=== PATIENT | male | born 1995 | race Caucasian/White ===

== ENCOUNTER 2021-07-23 10:03 | Outpatient (CLI) | payer OTHER ==
[2021-07-23 11:12] VITALS: BP 139/89
--- NOTE | 2021-07-23 11:12 | SLEEP CARE CONSULTATION ---
Information from patient questionnaire entered by Edu Mijares MA. I have reviewed and concur with the information entered by Edu Mijares MA. This document represents the service I personally performed and the decisions made by , Eugenia Maza ARNP. History of Present Illness Service Date and Time: 07/23/2021 1003 Reason for Visit: New patient (ONSET 06/01/2020, NO PRIORS, ) Chief Complaint: reports: Unrefreshed sleep, Snoring, Fatigue, Frequent awak enings at night Date of Onset: 2019 TO CURRENT Usual bedtime: 930-1000 PM Time it takes to fall asleep: 30 - 1 HOUR Snores at night: Yes Observed to quit breathing while asleep: No (sleeps alone) Number of times waking at night: 3-5 Reasons for waking at night: reports: Snoring, Other (DRY SORE THROAT; restlessness) Toss, Turn, or Twitch while sleeping: Yes Recalls having dreams: No Usually gets out of bed at: 0530; weekends wakes up at 0530 but goes back to sleep til 0700 Feels refreshed in the morning: No Morning headache: No Sleepy or fatigued during the day: Yes Ever fallen asleep while driving: No Takes day naps: Yes (1-2 times a month for 30 mins to 1 hour) Dreams during day naps: No Prior sleep studies: No Additional HPI information: I had the pleasure of seeing SUE BARRAGAN today regarding the possibility of him having a sleep disorder. His current complaints are fatigue, frequent night awakenings, snoring and unrefreshed sleep. He states he would like to see if he has sleep apnea because of his daytime fatigue. He has noticed it more in the last year. He has gained weight and his symptoms have been more noticeable since then. - Parasomnia Symptoms Ever been unable to move upon waking from sleep: No Walks in sleep: No Talks in sleep: No Ever acted out dreams in sleep: No Ever felt weak in the knees when startled or emotional: No Bothered by creepy, crawly, restless sensations in legs: Yes (just can't stand still) Problems with memory or concentration: Yes (memory seems worse) Subjective Initial [place] Sleepiness Scale score: 8 (06/2021) Past Medical History Past Medical History: reports: Depression, Other (right shoulder tendinitis, seeing PT) Social History The patient's occupation is a [employer]. Patient is Single and lives in . Have you smoked in the past 12 months: No Cigarettes per day (20/pack): 10 Years of smokin Quit date: 2018 Smoking Pack Years: 1.5 Alcohol use: Yes Alcohol amount and frequency: 2-3 X MONTHLY Caffeine use: Yes Caffeine amount and frequency: 1 X DAILY Family History Family history of sleep disordered breathing: Yes Family Hx Sleep Apnea: Mother: Snoring, Sleep apnea - Treated, Father: Snoring, Sleep apnea - Untreated Allergies and Home Medications Known drug allergies: No Drug allergies reviewed: Yes Home medication list reviewed: Yes (no daily medications at this time; may restart Prozac soon for depression) Review of Systems Weight gain over past 5 years: 50 lbs Cardiovascular: denies: high blood pressure Gastrointestinal: denies: heartburn Neurological: denies: headaches, head trauma Psychiatric: reports: depression Ear/Nose/Throat: reports: wisdom teeth removed. denies: injury to nose, tonsillectomy Musculoskeletal: reports: other (Tendonitis of right shoulder) Immunologic: denies: allergies to food or environment Physical Exam Vital signs obtained and entered by: Jodie MIJARES CMA AAHEDY Blood Pressure: 139/89 (PULSE 78, RIGHT, RESP 16) Heart Rate: 76 O2 Saturation: 98 (CLOTH) Height: 6 ft 2 in Weight: 258 lb (PT CLOTHES) Body Mass Index: 33.1 BMI Classification: Obese Neck circumference: 16 (INCHES) Mood/affect: normal Mouth and throat: narrow oropharynx Soft palate: long Hard palate: normal Uvula: normal Uvula visualization: 50% Mallampati Class II Tongue: normal in size Tonsils: small Neck: normal w/o lymphadenopathy or thyromegaly Heart: regular rate and rhythm Lungs: clear bilaterally Impression and Plan 1. Suspected Obstructive Sleep Apnea-Hypopnea Syndrome, as suggested by a history of loud and irregular snoring, frequent awakening during the night, unrefreshed sleep, cognitive impairment, and excessive daytime sleepiness. Narrow oropharynx and obesity are common predisposing factors for obstructive sleep apnea-hypopnea syndrome. I recommend proceeding to polysomnography to confirm the diagnosis and to assess severity. If the patient has significant sleep disordered breathing, a manual CPAP titration study will also be performed to find the optimal treatment pressure. I informed the patient of what the sleep studies involve and after some discussion, obtained agreement to proceed. The pathophysiology of obstructive sleep apnea-hypopnea syndrome was discussed with the patient and health risks of cardiovascular and cerebrovascular disease if not treated. Risks of drowsy driving discussed in detail and patient advised to avoid long distance driving and to lung puller at the first sign of drowsiness. Patient agreed to plan. * Schedule polysomnography +- manual CPAP titration study and return in 1-2 weeks after the study to discuss results. * Avoid long distance driving or driving when feeling sleepy. * Avoid alcohol, sedative and muscle relaxant around bedtime. * Attempt to lose weight. * Review instructions provided by trained office staff on how to prepare for the sleep study. * Return for follow-up after sleep study completed. Counseling Topics: Weight loss health impact Visit Type: In Office Time Spent with Patient (minutes): 33 Provider Statement: I spent 100% of the Face to Face Visit with the patient with greater than 50% spent counseling the patient and coordination of care.
== END 2021-07-23 10:04 | disposition home or self-care (01) ==
LOC: SC 10:03
PROVIDERS: ATTEND Nurse Practitioner Family
DX: R06.83 Snoring (principal); G47.8 Other sleep disorders; R53.83 Other fatigue; F32.A Depression, unspecified; E66.9 Obesity, unspecified; Z68.33 Body mass index [BMI] 33.0-33.9, adult; Z87.891 Personal history of nicotine dependence
CPT/HCPCS: 99203; 99212

== ENCOUNTER 2021-08-13 11:31 | Outpatient (CLI) | payer OTHER ==
[2021-08-13 12:01] VITALS: BP 148/91
--- NOTE | 2021-08-13 12:01 | SLEEP CARE CONSULTATION ---
Information from patient questionnaire entered by Edu Begum MA. I have reviewed and concur with the information entered by Edu Begum MA. This document represents the service I personally performed and the decisions made by , Eugenia Maza ARNP. History of Present Illness Service Date and Time: 08/13/2021 1131 Initial [place] Sleepiness Scale score: 8 (06/2021) Current [place] Sleepiness Scale score: 9 (07/2021) Additional HPI information: SUE BARRAGAN returns for follow up and results of the recently performed home sleep study. The patient was informed of the following findings: No significant sleep disordered breathing with an average AHI of 0.4 and mayo oxygen saturation of 90%. He did not sleep non-supine during the study. I explained the pathophysiology behind obstructive sleep apnea. Patient does not have sleep apnea and was advised how weight gain could increase the risk of developing sleep apnea in the future. I strongly encouraged the patient to lose weight. Patient has mild to moderate snoring. Snoring can be reduced by weight loss. Weight loss is best achieved with diet consult. Patient instructed to contact PCP for referral. Snoring can also be treated with an oral appliance from a dent ist. Advised to check insurance coverage. In addition, an ENT evaluation can be do to see if other treatment is indicated. Patient counseled not drink alcohol less than 4 hours before bedtime as it can increase snoring and apnea. Patient was cautioned about risks of drowsy driving until sleepiness symptoms resolve. Patient denies drowsy driving. Sleep Study - Results Type of Sleep Study: Home sleep study (F/U HOME STUDY, 08/02/21 [facility],) Prior sleep studies: No Polysomnography/Home Sleep Study results: Physician Impression: The quality of the study is good. The length of the study is adequate (> 240 minutes). Please also see the tabulated and graphic data. 1. No significant sleep disordered breathing, with an AHI of 0.4/hr and mayo SaO2 of 90%. During the study, the patient had 0 apneas (0 obstructive, 0 central, 0 mixed) and 3 hypopneas. The longest episode lasted 36.0 seconds. The patient only slept supine during this study (supine AHI was 0.4 and non-supine, 0.00). Allergies and Home Medications Known drug allergies: No Drug allergies reviewed: Yes Home medication list reviewed: Yes (no changes) Review of Systems Review of systems same as previous: Yes (no changes) Physical Exam Vital signs obtained and entered by: CHASITY CHEN Blood Pressure: 148/91 (RIGHT, PULSE 71, RESP 20, ) Cuff size: wrist Heart Rate: 80 O2 Saturation: 97 Height: 6 ft 2 in Weight: 255 lb (W/O CLOTHES) Body Mass Index: 32.7 BMI Classification: Obese Impression and Plan 1. Snoring but no significant sleep disordered breathing. Patient advised that often weight loss will reduce snoring as well as apnea risk. An oral appliance can also be used for snoring. This would require a dental consultation. Patient cautioned not to use other online appliances as can cause bite issues. A list of accredited dentists in [facility] with [facility] who make oral appliances is available in the office. Patient is advised to check if insurance will cover. An ENT consult can also be helpful to determine if any other treatment is an option. * Attempt to lose weight * Avoid alcohol consumption near bedtime * Return as needed for follow up. Counseling Topics: Weight loss health impact Visit Type: In Office Time Spent with Patient (minutes): 11 Provider Statement: I spent 100% of the Face to Face Visit with the patient with greater than 50% spent counseling the patient and coordination of care.
== END 2021-08-13 11:32 | disposition home or self-care (01) ==
LOC: SC 11:31
PROVIDERS: ATTEND Nurse Practitioner Family
DX: R06.83 Snoring (principal); E66.9 Obesity, unspecified; Z68.32 Body mass index [BMI] 32.0-32.9, adult
CPT/HCPCS: 99212

== ENCOUNTER 2023-07-05 08:56 | Outpatient (CLI) | payer OTHER ==
--- NOTE | 2023-07-05 09:50 | Sleep Patient Instructions ---
Sleep Center Visit Summary - Patient Visit Information Reason for Visit: Annual Followup - Patient Instructions Instructions Attached: Sleep Study Home Monitor Additional Instructions: You will be completing a sleep study, either an in-lab polysomnography (PSG) or home sleep study (HST). You will follow-up in the sleep care office after the sleep study is completed to hear the results and talk about therapy, if needed. You will be called by our office staff to schedule this appointment, but you may contact us with any questions. - Clinic Information Contact: [facility] [address] [place] [address] [email or web address] T: [phone]
--- NOTE | 2023-07-05 09:52 | SLEEP CARE CONSULTATION ---
Information from patient questionnaire entered by Yakelin Goldsmith. I have reviewed and concur with the information entered by Yakelin Goldsmith. This document represents the service I personally performed and the decisions made by me, Eugenia Maza ARNP. History of Present Illness Service Date and Time: 07/05/2023 0856 Reason for follow up: annual (LAST SEEN 07/2021 SYMPTOMATIC) Prior sleep studies: No Type of Sleep Study: Home sleep study (F/U HOME STUDY, 08/02/21 [facility],) HPI additional information: I had the pleasure of seeing SUE BARRAGAN today regarding the possibility of him having a sleep disorder. He was last seen in 07/2021 after HST that was negative. His current complaints are fatigue, frequent night awakenings, snoring and unrefreshed sleep. He says that he was getting better but then he was put on other medications, he has gained weight and has a new job. His new job is in [employer] 2:30 PM to 10:50 PM The patient tells me that he normally goes to bed around 1-2 AM, and it takes him approximately 30 minutes to fall asleep. He has been told that he snores loudly and irregularly at night. He has not been observed to stop breathing in his sleep. He does not have a bed partner at this time. He has snored himself awake and has woke up with a raw, sore throat. He can recall waking up on the average of 3-4 times during the night. Most of the time he wakes up because of snoring and unknown reasons. He has occasionally awakened for his own snoring There is a lot of tossing and turning in his sleep. Generally there is no recollection of dreams. He usually wakes up at 0900 and does not feel refreshed. He usually does have a morning headache. During the day he complains of feeling sleepy and fatigued. He has fallen asleep while driving and has gone out of the tuyet, no accident. He usually does not take naps during the day. If he naps, upon falling asleep during the day he denies having vivid dreams. There is no somniloquy (sleep talking) or somnambulism (sleep walking). He has never experienced sleep paralysis, cataplexy, or symptoms of restless leg syndrome. He denies having impaired concentration during the day. Sleep Study - Results Type of Sleep Study: Home sleep study (F/U HOME STUDY, 08/02/21 [facility],) Prior sleep studies: No Subjective Initial [place] Sleepiness Scale score: 8 (06/2021) Current [place] Sleepiness Scale score: 15 (07/05/23) Allergies and Home Medications Known drug allergies: No Drug allergies reviewed: Yes Home medication list reviewed: Yes (Bupropion, Fluoxetine) Review of Systems Review of systems same as previous: Yes (NO CHANGE) Physical Exam Vital signs obtained and entered by: YAKELIN Jacome MA Blood Pressure: 135/79 (LEFT ARM) Cuff size: long Heart Rate: 64 O2 Saturation: 96 Height: 6 ft 2 in Weight: 273 lb 6.4 oz Weight change since last visit: 18 lb gain Body Mass Index: 35.1 BMI Classification: Obese Impression and Plan 1. Suspected Obstructive Sleep Apnea-Hypopnea Syndrome, as suggested by a history of loud and irregular snoring, frequent awakening during the night, unrefreshed sleep, and excessive daytime sleepiness. I recommend proceeding to polysomnography to confirm the diagnosis and to assess severity. If the patient has significant sleep disordered breathing, a manual CPAP titration study will also be performed to find the optimal treatment pressure. I informed the patient of what the sleep studies involve and after some discussion, obtained agreement to proceed. The pathophysiology of obstructive sleep apnea-hypopnea syndrome was discussed with the patient and health risks of cardiovascular and cerebrovascular disease if not treated. Risks of drowsy driving discussed in detail and patient advised to avoid long distance driving and to drum puller at the first sign of drowsiness. Patient agreed to plan. 2. Obesity, unspecified. Currently patients BMI is 35.1. Obesity increases the risk of apnea, CPAP pressure requirements and overall health risks especially cardiovascular and diabetes. Thus patient is advised to lose weight. * Schedule polysomnography +- manual CPAP titration study and return in 1-2 weeks after the study to discuss result and initiate therapy. * Avoid long distance driving or driving when feeling sleepy. * Avoid alcohol, sedative and muscle relaxant around bedtime. * Attempt to lose weight. * Review instructions provided by trained office staff on how to prepare for the sleep study. * Return for follow-up after sleep study completed. Counseling Topics: Weight loss health impact Plan: PSG/HST Visit Type: In Office Time Spent with Patient (minutes): 21 Provider Statement: I spent 100% of the Face to Face Visit with the patient with greater than 50% spent counseling the patient and coordination of care.
[2023-07-05 10:01] VITALS: BP 135/79; O2SAT 96
== END 2023-07-05 08:57 | disposition home or self-care (01) ==
LOC: SC 08:56
PROVIDERS: ATTEND Nurse Practitioner Family
DX: R06.83 Snoring (principal); G47.8 Other sleep disorders; G47.10 Hypersomnia, unspecified; E66.9 Obesity, unspecified; Z68.35 Body mass index [BMI] 35.0-35.9, adult
CPT/HCPCS: 99212; 99213

== ENCOUNTER 2023-08-10 12:26 | Outpatient (CLI) | payer OTHER | END 2023-08-10 12:27 | disposition home or self-care (01) | LOC: SC 12:26 | PROVIDERS: ATTEND Nurse Practitioner Family | DX: G47.33 Obstructive sleep apnea (adult) (pediatric) (principal); R09.02 Hypoxemia | CPT/HCPCS: 95806 ==

== ENCOUNTER 2023-09-04 11:03 | Outpatient (CLI) | payer OTHER ==
--- NOTE | 2023-09-04 21:29 | SLEEP CARE CONSULTATION ---
Information from patient questionnaire entered by Seven Goldsmith. I have reviewed and concur with the information entered by Seven Goldsmith. This document represents the service I personally performed and the decisions made by me, Hali Fu MD, [facility]. History of Present Illness Service Date and Time: 09/04/2023 1103 Initial [place] Sleepiness Scale score: 8 (06/2021) Current [place] Sleepiness Scale score: 12 (09/04/23) Additional HPI information: Mr. Hitchcock returned for a follow up of the home sleep apnea test (HSAT) he had on 08/11/23. The polysomnography showed mild, with an AHI of 9.0/hr and mayo SaO2 of 83%. During the study, the patient had 5 apneas (5 obstructive, 0 central, 0 mixed) and 38 hypopneas. The longest episode lasted 61.0 seconds. The respiratory events occurred slightly more frequently during supine sleep (supine AHI was 10.0 and non-supine, 8.22). Hypoxemia was mild, with the lowest oxygen saturation of 83 % and 54.6 minutes with SaO2 under 90%. Baseline oxygen saturation was normal (Average oxygen saturation was 92%). The patient was informed of these findings. I explained to him the pathophysiology behind obstructive sleep apnea. We then spent quite a bit of time discussing different treatment options. For mild obstructive sleep apnea, surgery and oral appliance are alternatives to nasal CPAP therapy but in moderate or severe cases, nasal CPAP is the most effective and reliable treat ment. Weight loss in an obese individual is strongly recommended. After some discussion, he opted to go with the nasal CPAP therapy. I explained to him how CPAP machine works and what to expect when using the machine. He is encouraged to use CPAP every night especially in the first 2 to 3 nights in order to get used to it. He should call his CPAP supplier or me to discuss any mechanical problem that may occur. If he snores or feels like he is not getting enough air from the machine, he should notify me and I will increase the pressure. Sleep Study - Results Type of Sleep Study: Home sleep study (F/U HOME STUDY 08/11/23) Prior sleep studies: No Allergies and Home Medications Drug allergies reviewed: Yes Home medication list reviewed: Yes Allergy and home medication list: Allergies No Known Drug Allergies Allergy (Verified 09/01/23 11:52) Review of Systems Review of systems same as previous: Yes (NO CHANGE) Physical Exam Vital signs obtained and entered by: SEVEN Jacome MA Blood Pressure: 144/84 (LEFT ARM) Cuff size: long Heart Rate: 79 O2 Saturation: 98 Height: 6 ft 2 in Weight: 265 lb 6.4 oz Body Mass Index: 34.0 BMI Classification: Obese Impression and Plan IMPRESSION: 1. Obstructive Sleep Apnea-Hypopnea Syndrome, mild, associated with mild hypoxemia. Possibly, this is the cause of the patients symptoms of unrefreshed sleep, and excessive daytime sleepiness. As mentioned above, the patient will be started on an autoCPAP set between 5 and 15 cmH2O. Depending on his response and compliance he may be brought back for an overnight CPAP titration study. PLAN: 1. Prescription made for an autoCPAP, heated humidifier, and related supplies. 2. Attempt to lose weight and avoid alcohol consumption near bedtime. 3. Return for follow up after one month of using the CPAP. Prescriptions: Auto CPAP Follow up with Sleep Care in: 1-2 months Visit Type: In Office Time Spent with Patient (minutes): 15 Provider Statement: I spent 100% of the Face to Face Visit with the patient with greater than 50% spent counseling the patient and coordination of care.
[2023-09-04 21:31] VITALS: BP 144/84; O2SAT 98
== END 2023-09-04 11:04 | disposition home or self-care (01) ==
LOC: SC 11:03
PROVIDERS: ATTEND Internal Medicine Pulmonary Disease
DX: G47.33 Obstructive sleep apnea (adult) (pediatric) (principal); R09.02 Hypoxemia; E66.9 Obesity, unspecified; Z68.34 Body mass index [BMI] 34.0-34.9, adult
CPT/HCPCS: 99212

== ENCOUNTER 2023-10-24 09:48 | Outpatient (CLI) | payer OTHER ==
--- NOTE | 2023-10-24 10:21 | Sleep Patient Instructions ---
Sleep Center Visit Summary - Patient Visit Information Reason for Visit: First compliance follow-up - Patient Instructions Additional Instructions: You were here for follow up of CPAP therapy. You will be continued on CPAP therapy with pressure at 8-11 cmH2O. Please let us know if the pressure change is uncomfortable and we can make further adjustments of the pressure. You should follow up with sleep care in 1-2 months. You may contact us sooner for any questions or concerns. - Clinic Information Contact: [facility] [address] [place] [address] [email or web address] T: [phone]
--- NOTE | 2023-10-24 10:26 | SLEEP CARE CONSULTATION ---
Information from patient questionnaire entered by Yakelin Goldsmith. I have reviewed and concur with the information entered by Yakelin Goldsmith. This document represents the service I personally performed and the decisions made by , Eugenia Maza ARNP. History of Present Illness Service Date and Time: 10/24/2023 0948 Previous diagnosis: Mild, Obstructive Sleep Apnea-Hypopnea Syndrome AHI: 9 (08/11/23) Reason for follow up: first compliance Equipment type: CPAP (RESMED Airsense 11, s/u 09/21/23) Equipment obtained from: Other ([facility]; getting supplies) Mask style: Full face ([place]iest[place]) Backup mask available: No (will keep old mask when replaced) Last cushion change: not replaced yet Prior sleep studies: No Type of Sleep Study: Home sleep study (F/U HOME STUDY 08/11/23) HPI additional information: SUE BARRAGAN was diagnosed to have moderate, AHI 9, obstructive sleep apnea- hypopnea syndrome and returned today for CPAP therapy first compliance follow- up. Sleep Study - Results Type of Sleep Study: Home sleep study (F/U HOME STUDY 08/11/23) Prior sleep studies: No CPAP Compliance Data - Data Reviewed with Patient Average duration of nightly device use: 4 HRS 6 MINS Compliance rate %: 33 (09/20/23-10/19/23; days used) Current pressure setting (cmH2O): 5-15 (median 7.6, avg 9.8, max 10.6) Average residual AHI: 0.9 Central apnea: 0.2 Obstructive apnea: 0.5 Hypopnea: 0.2 Average large leak: 1.4 L/min Subjective Missed days of use due to: reports: other (falling asleep without mask on or taking off early and falling back to sleep) Patient concerns: reports: other. denies: aerophagia, mask discomfort, air bl owing in eyes, mask leak noise, condensation in mask/hose, nasal congestion, dry mouth, nose, throat, epistaxis Observed to snore while using device: No Current pressure setting perceived as: comfortable On therapy, patient: reports: sleeping better, awakening more refreshed, being more awake and alert during the day, more rested overall. denies: drowsiness while driving Initial [place] Sleepiness Scale score: 8 (06/2021) Current [place] Sleepiness Scale score: 9 (10/24/23) Allergies and Home Medications Known drug allergies: No Drug allergies reviewed: Yes Home medication list reviewed: Yes (amoxicillin) Allergy and home medication list: Allergies No Known Drug Allergies Allergy (Verified 10/20/23 09:51) Review of Systems Review of systems same as previous: No (RIGHT EAR INFECTION) Physical Exam Vital signs obtained and entered by: YAKELIN Jacome MA Blood Pressure: 146/83 (LEFT ARM) Cuff size: regular Heart Rate: 60 O2 Saturation: 99 Height: 6 ft 2 in Weight: 263 lb Body Mass Index: 33.7 BMI Classification: Obese Impression and Plan 1. Obstructive Sleep Apnea-Hypopnea Syndrome, mild, with poor treatment compliance and good apnea control. On CPAP therapy, the patient has better sleep quality and is more rested overall. He feels it is going well with using the machine but he has had times when he lays down before putting the mask on and falls asleep. He has also had times when he woke up early, intending to get up, takes mask off and falls back to sleep for another hour. I advised him to put mask on before laying down while he is forming the habit of using his CPAP. He agreed and will try to be more diligent in putting the mask on before falling asleep. Compliance guidelines reviewed for insurance coverage. Patient was counseled on the difference between meeting compliance and optimal use of CPAP. Optimal use of CPAP is use of CPAP with all sleep to obtain maximum benefit of treatment. Patient is encouraged to use CPAP with all sleep. He voiced understanding and states he will do better. Patient's apnea severity and rationale for treatment to reduce apnea, improve sleep quality and reduce cardiovascular and cerebrovascular events was reviewed. I also reviewed the benefit of consistent device use of CPAP for depression. 2. Obesity, unspecified. Currently patients BMI is 33.7. Obesity increases the risk of apnea, CPAP pressure requirements and overall health risks especially cardiovascular and diabetes. Thus patient is advised to lose weight. * Change auto CPAP pressure to 8-11 cmH2O * Notify me if snoring with mask or feeling that the pressure is too much or too little * Attempt to lose weight * Call this office if any problems using CPAP * Return for follow up in 1-2 months, or sooner if concerns arise Counseling Topics: Spare mask, Weight loss health impact Follow up with Sleep Care in: 1-2 months Visit Type: In Office Time Spent with Patient (minutes): 21 Provider Statement: I spent 100% of the Face to Face Visit with the patient with greater than 50% spent counseling the patient and coordination of care.
[2023-10-24 10:30] VITALS: BP 146/83; O2SAT 99
== END 2023-10-24 09:49 | disposition home or self-care (01) ==
LOC: SC 09:48
PROVIDERS: ATTEND Nurse Practitioner Family
DX: G47.33 Obstructive sleep apnea (adult) (pediatric) (principal); E66.9 Obesity, unspecified; Z68.33 Body mass index [BMI] 33.0-33.9, adult
CPT/HCPCS: 99212; 99213